=== PATIENT | female | born 1945 | race African-American/Black ===

== ENCOUNTER 2020-04-01 14:50 | Emergency (ER) | payer OTHER ==
[~2020-04-01] VITALS: Ht 165.1 cm; Wt 47.6 kg
[2020-04-01] MEDS ORDERED: NAPROXEN SODIU220 M2 PO (15:04)
[2020-04-01] MEDS ORDERED: CALCIUM500 MG PO (15:04)
[2020-04-01] MEDS ORDERED: NORVASC 2.5 MG2.5 M1 PO (15:04)
[2020-04-01 15:38] LABS: ABSOLUTE NEUTROPHILS 2.9 thou/uL (1.4-8.2); BASOPHILS 1.2 % (0.0-2.0); EOSINOPHILS 4.8 % (0.0-3.0); HEMATOCRIT 30.8 % (37.0-47.0); HEMOGLOBIN 10.6 gm/dL (12.0-15.0); LYMPHOCYTES 44.3 % (24.0-44.0); MCHC 34.4 g/dL (28.0-37.0); MCV 98.8 fL (80.0-100.0); PLATELET COUNT 158 thou/uL (150-400); POLYS 38.7 % (36.0-66.0); RBC 3.11 mil/uL (4.20-5.00); RDW 14.7 % (10.5-14.5); WBC 7.5 thou/uL (4.0-11.0)
[2020-04-01 15:49] LABS: CALCIUM 9.9 mg/dL (8.5-10.1); CREATININE 4.4 mg/dL (0.6-1.0); POTASSIUM 3.3 mmol/L (3.5-5.1)
[2020-04-01 15:56] LABS: ALBUMIN 3.3 g/dL (3.4-5.0); TOTAL BILIRUBIN 0.7 mg/dL (0.2-1.0); TOTAL PROTEIN 7.7 g/dL (6.4-8.2)
[2020-04-01 21:18] VITALS: BP 122/58
--- NOTE | 2020-04-02 08:13 | EKG ---
[facility] [place] [address] ELECTROCARDIOGRAM REPORT Name: MARTY CASTRO Room #: DEP [facility]#: [id number] Admission: 04/01/20 Attend Phys: Discharge: 04/01/20 Date of : 45 Report #: [id number] THIS REPORT FOR: cc: FAM - No family physician/PCP FAM - No family physician/PCP Black Katz MD ~ THIS REPORT FOR: //name// [facility] ED Test Date: 2020-04-01 Test Time: 16:57:33 Pat Name: MARTY CASTRO Department: Room: Gender: F Telegraph Inspector: : 1945 Requested By: Gautam Montenegro Order Number: [id number] MD: Black Katz Measurements Intervals [place] Rate: 83 P: 70 TX: 180 QRS: 41 QRSD: 89 T: 58 QT: 418 QTc: 492 Interpretive Statements Sinus rhythm Borderline prolonged QT interval No previous ECG available for comparison Electronically Signed On 04-02-2020 8:13:13 CDT by Black Katz [email or web address] <ELECTRONICALLY SIGNED> By: Black Katz MD 04/02/2013 56 56 Black Katz MD /MELVINA
== END 2020-04-01 23:15 | disposition home or self-care (01) ==
LOC: ER 14:50 → EDSEX 14:50 → ER 23:15
PROVIDERS: Emergency Medicine
DX: R53.1 Weakness (principal); R63.0 Anorexia; I12.0 Hypertensive chronic kidney disease with stage 5 chronic kidney disease or end stage renal disease; N18.6 End stage renal disease; Z99.2 Dependence on renal dialysis; Z79.899 Other long term (current) drug therapy; Z95.828 Presence of other vascular implants and grafts